=== PATIENT | female | born 1960 | race Caucasian/White ===

== ENCOUNTER 2024-07-04 10:35 | Outpatient (RCR) | payer MEDICARE, SELFPAY | END 2024-12-31 23:59 | disposition home or self-care (01) | LOC: CCIC 10:35 | PROVIDERS: PCP Family Medicine; Visit Provider Clinical Nurse Specialist | DX: C34.12 Malignant neoplasm of upper lobe, left bronchus or lung (principal) | CPT/HCPCS: 99211 ==